=== PATIENT | male | born 1960 | race Caucasian/White ===

== ENCOUNTER 2017-02-21 08:48 | Inpatient (IN) ==
[2017-02-21] MEDS ORDERED: 0.9 % Sodium Chloride 1,000 ML IVC ONE ×2 (09:08→10:10)
[2017-02-21 09:19] LABS: Bilirubin,Urine Moderate (Negative); Blood,Urine Small (Negative); Clarity,Urine Cloudy (Clear); Color,Urine Dark Yellow (Yellow); Glucose,Urine (UA) Normal (Normal); Ketones,Urine 15 mg/dL (Negative); Leukocyte Esterase,Urine Negative (Negative); Nitrite,Urine Negative (Negative); PH,Urine 5.5 pH Units (5.0-8.0); Protein,Urine 30 mg/dL (Neg-Trace); Urobilinogen,Urine Normal (Normal)
[2017-02-21 09:21] LABS: Bacteria,Urine None Seen per hpf (None-Few); Hyaline Casts,Urine None Seen per lpf (None-Few); Squamous Epithelial Cell,Urine Moderate per lpf (None-Few); WBC,Urine 0-3 per hpf (0-3)
--- NOTE | 2017-02-21 09:30 | Emergency Department Note ---
Disposition Clinical Impression: Dehydration, Nausea and vomiting in adult, Acute renal insufficiency, Elevated LFTs, Serum lipase elevation, Hyperbilirubinemia Disposition: Admitted As Inpatient Condition: Fair Referrals: Onesimo Ayala DO [Primary Care Provider] - Forms: ED Satisfaction Letter Time of Disposition: 12:42 Nausea/Vomiting/Diarrhea HPI - General Chief complaint: ED Nausea/Vomiting/Diarrhea Stated complaint: N/V/D x3 days Time Seen by Provider: 02/21/17 09:08 Source: patient Limitations: no limitations Nursing Notes Reviewed: Yes Vital Signs Reviewed: Yes - History of Present Illness HPI Narrative: 56-year-old nontoxic-appearing male presents to emergency department for evaluation of nausea, vomiting, and diarrhea that has been occurring for the past 3 days. He states numerous episodes per day, stating "I go about every half hour". He denies any associated abdominal pain. He denies any fever, chills, cough, chest pain, or shortness of breath. He denies any dysuria, blood in the stool, or bloody emesis. He denies any recent foreign travel. He states that he has had multiple sick contacts at work with similar symptoms. He does admit to "occasioal" ETOH use. He goes on to state that he is feeling rather weak as of this point. Pt Subjective Complaint: nausea, vomiting, diarrhea Onset (ago): day(s) (3) Description of emesis: watery Description of Diarrhea: water Associated Abdominal Pain: No Associated symptoms: Reports: weakness. Denies: chest pain, diaphoresis, fever/ chills, headaches, dysuria, syncope - Related Data Home Medications Medication Instructions Recorded Confirmed Lisinopril 02/21/17 Pantoprazole Sodium [Protonix] 20 mg PO DAILY 02/21/17 02/21/17 Allergies Allergy/AdvReac Type Severity Reaction Status Date / Time No Known Allergies Allergy Verified 02/21/17 08:52 All systems ED: reviewed and negative except as stated. Constitutional: Denies: fever, chills, weakness, weight change Eyes: Denies: eye pain, eye discharge, vision change ENT ED: Denies: ear pain, throat pain, dental pain, hearing loss, epistaxis, congestion, dysphagia Cardiovascular: Denies: chest pain, palpitations, dyspnea on exertion, edema, syncope Respiratory: Denies: cough, dyspnea, wheezes, hemoptysis, stridor Gastrointestinal: Reports: as per HPI, nausea, vomiting, diarrhea. Denies: abdominal pain, constipation, hematemesis, melena, hematochezia Genitourinary: Denies: urgency, dysuria, frequency, hematuria Musculoskeletal: Denies: back pain, neck pain, arthralgia, myalgia Integumentary: Denies: rash, abrasion, lesions Neurological: Reports: as per HPI, weakness. Denies: headache, numbness, paresthesias, confusion, abnormal gait, vertigo Psychiatric: Denies: anxiety, depression, suicidal thoughts, homicidal thoughts , auditory hallucinations, visual hallucinations Endocrine: Denies: fatigue Hematological/Lymphatic: Denies: easy bleeding, easy bruising Allergic/Immunologic: Denies: facial swelling, urticaria Past Medical History - Past Medical History Attestation: Yes The following information was validated with the patient. Source: patient Medical history: Reports: GERD, hypertension, other - Social History Smoking Status: Never smoker Alcohol use: Reports: occasionally Drug use: Reports: none Physical Exam - General Limitations: no limitations General appearance: alert - Head Head exam: atraumatic, normocephalic, normal inspection - Eye Eye exam: Present: normal appearance, PERRL, EOMI. Absent: nystagmus - ENT ENT exam: mucous membranes dry - Neck Neck exam: Present: normal inspection, full ROM, trachea midline - Chest Chest inspection: Present: normal inspection, symmetric chest wall rise - Respiratory Respiratory exam: Present: normal lung sounds bilaterally. Absent: wheezes, stridor, accessory muscle use, prolonged expiratory phase - Cardiovascular Cardiovascular exam: Present: regular rate, normal rhythm, normal heart sounds - Abdominal Exam Abdominal exam: Present: soft, Non-Tender, normal bowel sounds. Absent: tenderness, distention, guarding, rebound, rigidity, organomegaly, trauma, Jessica's sign, tenderness at McBurney's Point, ascites, mass - Extremities Exam Extremities exam: Present: normal inspection, full ROM. Absent: tenderness, pedal edema - Back Exam Back exam: Present: normal inspection, full ROM. Absent: tenderness - Neurological Exam Neurological exam: Present: alert, oriented X3 - Psychiatric Psychiatric exam: Present: normal affect, normal mood - Skin Skin exam: Present: warm, dry, intact, normal color Course Course Narrative: 1005: I discussed this patient's case and laboratory results with Dr. Rodriguez. Dr. Rodriguez recommends obtaining a CT of the abdomen and pelvis without contrast regarding his elevated lipase, total bilirubin AST, and ALT. the patient's GFR and creatinine prohibit the use of IV contrast. 1204: I spoke with Dr. Josue, surgery contingents supervisor. Dr. Josue recommends admission to the hospitalist service and as needed consults with gastroenterology. 1236: I spoke with Dr. Shen, hospitalist. She accepts the patient for admission under the hospitalist service. Vital Signs Temperature 99.0 F 02/21/17 08:49 Pulse Rate 105 02/21/17 08:49 Respiratory Rate 18 02/21/17 08:49 Blood Pressure 134/83 02/21/17 08:49 O2 Sat by Pulse Oximetry 97 02/21/17 08:49 Temperature 98 F 02/21/17 10:57 Pulse Rate 84 02/21/17 12:07 Respiratory Rate 20 02/21/17 12:07 Blood Pressure 137/91 02/21/17 12:07 O2 Sat by Pulse Oximetry 98 02/21/17 12:07 Oxygen Delivery Oxygen Delivery Room Air Nausea/Vomiting/Diarrhea - Medical Records Medical records reviewed: Yes I reviewed the patient's medical records. - Lab Data Lab results reviewed: Yes I reviewed the patient's lab results. Result diagrams: 02/21/17 09:26 02/21/17 09:26 Lab Results 02/21/17 02/21/17 02/21/17 Range/Units 09:00 09:26 09:26 WBC 7.0 (4.3-11.1) K/mcL RBC 3.81 L (4.19-5.50) M/mcL Hgb 13.5 (12.9-16.9) g/dL Hct 37.9 (37.5-50.1) % MCV 99.5 (83.0-100.0) fL MCH 35.4 H (28.0-33.3) pg MCHC 35.6 H (31.6-35.5) g/dL RDW 12.5 (11.5-14.5) % Plt Count 56 L (140-400) K/mcL MPV 9.6 (9.4-12.4) fL Immature Gran % 1.6 (0-4) % Seg Neutrophils % 76.9 % Lymphocytes % 8.3 % Monocytes % 12.4 % Eosinophils % 0.4 % Basophils % 0.4 % Neutrophils # 5.4 (1.6-8.9) K/mcL Lymphocytes # 0.6 (0.6-4.6) K/mcL Monocytes # 0.9 (0.0-1.3) K/mcL Eosinophils # 0.0 (0.0-0.6) K/mcL Basophils # 0.0 (0.0-0.2) K/mcL Immature Plt Fraction 5.4 (1.1-6.1) % Sodium 131 L (136-145) mEq/L Potassium 4.5 (3.5-4.5) mEq/L Chloride 90 L (98-109) mEq/L Carbon Dioxide 19 (19-29) mEq/L BUN 97 H (8-26) mg/dL Creatinine 2.36 H (0.72-1.25) mg/dL Est GFR ( Amer) 35 L (> 60) Est GFR (Non-Af Amer) 29 L (> 60) BUN/Creatinine Ratio 41 H (6-26) Glucose 120 H (70-99) mg/dL Calculated Osmolality 303 H (280-300) Calcium 10.8 (8.6-10.8) mg/dL Total Bilirubin 2.7 H (0.2-1.2) mg/dL Direct Bilirubin 1.4 H (0.0-0.5) mg/dL Indirect Bilirubin 1.3 H (0.0-1.2) mg/dL AST 192 H (5-34) Units/L ALT 247 H (0-55) Units/L Alkaline Phosphatase 75 (38-126) Units/L Serum Total Protein 8.0 (6.0-8.3) g/dL Albumin 4.1 (3.5-5.0) g/dL Globulin 3.9 H (2.4-3.5) g/dL Albumin/Globulin Ratio 1.1 (1.1-2.2) Lipase 591 H (8-78) Units/L Urine Color Dark Yellow (Yellow) Urine Clarity Cloudy A (Clear) Urine pH 5.5 (5.0-8.0) pH Units Ur Specific [place] 1.020 (1.010-1.025) Urine Protein 30 H (Neg-Trace) mg/dL Urine Glucose (UA) Normal (Normal) mg/dL Urine Ketones 15 H (Negative) mg/dL Urine Blood Small H (Negative) Urine Nitrite Negative (Negative) Urine Bilirubin Moderate H (Negative) Urine Urobilinogen Normal (Normal) mg/dL Ur Leukocyte Esterase Negative (Negative) Urine Microscopic RBC 5-15 H (0-3) per hpf Urine Microscopic WBC 0-3 (0-3) per hpf Ur Squamous Epith Cells Moderate H (None-Few) per lpf Urine Bacteria None Seen (None-Few) per hpf Hyaline Casts None Seen (None-Few) per lpf Ur Culture Indicated? NO (NO) - Radiology Data Radiology results reviewed: Yes I reviewed the patient's radiology results. Abdomen/Pelvis CT 02/21/17 10:04 IMPRESSION: 1. No acute finding in the abdomen or pelvis to account for patient's vomiting and diarrhea. There is no evidence of bowel obstruction. 2. Diffuse hepatic steatosis. 3. Although not well seen on CT, there may be hyperdense material in the dependent portion of the gallbladder lumen. If patient has right upper quadrant abdominal pain, ultrasound would better assess the gallbladder for stones. 4. Fat containing umbilical hernia and fat containing left inguinal hernia. D/ / 02/21/2017 11:28:31 Thom Arechiga MD / tita Interpreting Provider: Thom Arechiga MD Gallbladder Ultrasound 02/21/17 11:05 IMPRESSION: Gallbladder sludge with no other sonographic findings for acute cholecystitis. Hepatic steatosis. D/ / Gladis Wallace MD / Gladis Wallace MD Interpreting Provider: Gladis Wallace MD
[2017-02-21 09:35] LABS: Eosinophils % 0.4 %; Hemoglobin 13.5 g/dL (12.9-16.9); Mean Corpuscular Volume 99.5 fL (83.0-100.0)
[2017-02-21 09:37] LABS: Basophils % 0.4 %; Hematocrit 37.9 % (37.5-50.1); Immature Granulocytes % 1.6 % (0-4); Immature Platelets 5.4 % (1.1-6.1); Lymphocytes # 0.6 K/mcL (0.6-4.6); Lymphocytes % 8.3 %; Mean Corpuscular HGB Conc 35.6 g/dL (31.6-35.5); Mean Corpuscular Hemoglobin 35.4 pg (28.0-33.3); Mean Platelet Volume 9.6 fL (9.4-12.4); Monocytes # 0.9 K/mcL (0.0-1.3); Monocytes % 12.4 %; Red Blood Count 3.81 M/mcL (4.19-5.50); Red Cell Distribution Width 12.5 % (11.5-14.5); Segmented Neutrophils % 76.9 %
[2017-02-21 09:42] LABS: Neutrophils # 5.4 K/mcL (1.6-8.9); Platelet Count 56 K/mcL (140-400)
[2017-02-21 09:52] LABS: Albumin 4.1 g/dL (3.5-5.0); Albumin/Globulin Ratio 1.1 (1.1-2.2); Bilirubin,Direct 1.4 mg/dL (0.0-0.5); Bilirubin,Indirect 1.3 mg/dL (0.0-1.2); Bilirubin,Total 2.7 mg/dL (0.2-1.2); Calcium 10.8 mg/dL (8.6-10.8); Globulin 3.9 g/dL (2.4-3.5); Potassium 4.5 mEq/L (3.5-4.5)
[2017-02-21 13:34] LABS: Hepatitis B Surface Antigen Nonreactive (Nonreactive)
[2017-02-21] MEDS ORDERED: Naloxone 0.4 MG/ML INJ IVP PRN (14:54)
[2017-02-21] MEDS ORDERED: Ondansetron 4 MG/2 ML VIAL IVP PRN (14:54)
[2017-02-21] MEDS: 0.9 % Sodium Chloride 1,000 ML IVC SCH (15:15)
--- NOTE | 2017-02-21 15:19 | Internal Med History&Physical ---
Date of Encounter: 02/21/17 Time of Encounter: 15:17 Assessment and Plan (1) Dehydration Current visit: Yes Status: Acute 2/2 n/v/d. He took [id number] antidiarrheal medication, after which he says he has not had diarrhea today. HE got 2 l of IVF at ED, will continue IVF until he is able to tolerate diet well. (2) Nausea and vomiting in adult Current visit: Yes Status: Acute unclear etiology, ?viral CT abdomen unremarkable, GB US shows biliary sludge only will treat symptomatically, will repeat LFTs tomorrow. GI has been consulted. (3) Acute renal insufficiency Current visit: Yes Status: Acute Secondary to dehydration from nausea vomiting and diarrhea for the last 3 days. Will repeat Chem-7 tomorrow, continue IV fluids. Most likely prerenal from dehydration. (4) Elevated LFTs Current visit: Yes Status: Acute Hepatic steatosis with fatty liver in the CAT scan. Does not show CBD dilatation or gallstones. hepatitis panel has been sent, hepBsAg is negative, will repeat LFTs tomm for the trend. no recent addition or change in any meds. However has gallbladder sludge, unclear significance, however will consult GI for further evaluation. Patient is clinically asymptomatic with no abdominal pain at this time. (5) Serum lipase elevation Current visit: Yes Status: Acute no abdmonial pain, clinically does not appear as acute pancreatitis. however will continue conservative management (6) Hyperbilirubinemia Current visit: Yes Status: Acute Internal Medicine - H&P: HPI Chief complaint: n/v/d Admitted From: Home Plans for Post Hospital Care: Home History of present illness: Mr. Morgan is a 56 year old male presents to emergency department for evaluation of nausea, vomiting, and diarrhea that has been occurring for the past 3 days. He states numerous episodes per day, diarrhea watery with no blood. He denies any associated abdominal pain. He denies any fever, chills, cough, chest pain, or shortness of breath. He denies any dysuria, blood in the stool, or bloody emesis. He denies any recent foreign travel. He does admit to "occasioal" ETOH use. HE says that he has not been able to eat or drink much and feels like he has lost weight and feels very weak. Past Med Surg Social Fam HX - Past Medical History Medical history: GERD, hypertension, other - Social History Smoking Status: Never smoker Smokeless Tobacco Status: No Alcohol use: occasionally Drug use: none Internal Medicine - H&P: Meds Lisinopril/Hydrochlorothiazide [Zestoretic 20-12.5 mg Tablet] 1 tab PO DAILY 09/29 [History] Metoprolol Succinate 150 mg PO DAILY 02/21/17 [History] Multivit-Min/FA/Lycopen/Lutein [Men 50 Plus Multivitamin Tab] 1 tab PO DAILY 09/29 [History] Pantoprazole Sodium [Protonix] 40 mg PO DAILY 02/21/17 [History] Allergies No Known Allergies Allergy (Verified 02/21/17 08:52) All Systems PM: A 10-system review of systems was performed and is negative for pertinent findings except as documented above in the HPI. - Constitutional Constitutional: lethargy, weakness - EENT Eyes: no change in vision, no discharge, no pain, no photophobia Ears: no ear discharge, no ear pain, no tinnitus Nose, mouth and throat: no dysphagia, no nasal discharge, no neck pain, no sore throat - Cardiovascular Cardiovascular ROS IM: no chest pain, no diaphoresis, no dyspnea, no lightheadedness, no palpitations, no syncope - Respiratory Respiratory: no cough, no dyspnea, no wheezing, no excessive phlegm production - Gastrointestinal Gastrointestinal: diarrhea, nausea, vomiting - Musculoskeletal Musculoskeletal ROS IM: no numbness, no tingling - Integumentary Integumentary IM: no rash, no unusual bruising - Constitutional Vitals: Temp Pulse Resp BP Pulse Ox 98.0 F 90 16 155/83 94 02/21/17 15:03 02/21/17 15:03 02/21/17 15:03 02/21/17 15:03 02/21/17 15:03 General appearance: Present: A&O X 3, no acute distress Exam: - Head Head exam: atraumatic, normocephalic, normal inspection - Eye Eye exam: Present: normal appearance, PERRL, EOMI. Absent: nystagmus - ENT ENT exam: mucous membranes dry - Neck Neck exam: Present: normal inspection, full ROM, trachea midline - Respiratory Respiratory exam: Present: normal lung sounds bilaterally. Absent: wheezes, stridor, accessory muscle use, prolonged expiratory phase - Cardiovascular Cardiovascular exam: Present: regular rate, normal rhythm, normal heart sounds - Abdominal Exam Abdominal exam: Present: soft, Non-Tender, normal bowel sounds. Absent: tenderness, distention, guarding, rebound, rigidity, organomegaly, trauma, Jessica's sign, tenderness at McBurney's Point, ascites, mass - Extremities Exam Extremities exam: Present: normal inspection, full ROM. Absent: tenderness, pedal edema - Back Exam Back exam: Present: normal inspection, full ROM. Absent: tenderness - Neurological Exam Neurological exam: Present: alert, oriented X3 - Psychiatric Psychiatric exam: Present: normal affect, normal mood - Skin Skin exam: Present: warm, dry, intact, normal color Internal Med - H&P Results - Labs CBC & Chem 7: 02/21/17 09:26 02/21/17 09:26
[2017-02-21] MEDS ORDERED: Artificial Tears SOLN 15 ML BOTTLE BOTH EYES PRN (23:44)
[2017-02-22] MEDS: 0.9 % Sodium Chloride 1,000 ML IVC SCH ×3 (01:28→22:55)
[2017-02-22 06:16] LABS: Basophils % 0.6 %
[2017-02-22 06:18] LABS: Eosinophils # 0.1 K/mcL (0.0-0.6); Hemoglobin 11.1 g/dL (12.9-16.9); Immature Granulocytes % 1.4 % (0-4); Immature Platelets 5.4 % (1.1-6.1); Lymphocytes # 0.9 K/mcL (0.6-4.6); Lymphocytes % 18.4 %; Mean Corpuscular HGB Conc 34.7 g/dL (31.6-35.5); Mean Corpuscular Hemoglobin 35.6 pg (28.0-33.3); Mean Corpuscular Volume 102.6 fL (83.0-100.0); Mean Platelet Volume 10.4 fL (9.4-12.4); Monocytes # 0.6 K/mcL (0.0-1.3); Monocytes % 12.1 %; Neutrophils # 3.2 K/mcL (1.6-8.9); Red Blood Count 3.12 M/mcL (4.19-5.50); Red Cell Distribution Width 12.3 % (11.5-14.5); Segmented Neutrophils % 65.5 %
[2017-02-22 06:30] LABS: Alanine Aminotransferase 182 Units/L (0-55); Albumin 3.4 g/dL (3.5-5.0); Albumin/Globulin Ratio 1.1 (1.1-2.2); Alkaline Phosphatase 56 Units/L (38-126); Aspartate Amino Transferase 139 Units/L (5-34); BUN/Creatinine Ratio 43 (6-26); Bilirubin,Indirect 1.3 mg/dL (0.0-1.2); Bilirubin,Total 2.3 mg/dL (0.2-1.2); Calcium 9.5 mg/dL (8.6-10.8); Carbon Dioxide 24 mEq/L (19-29); Chloride 99 mEq/L (98-109); Globulin 3.1 g/dL (2.4-3.5); Glucose 85 mg/dL (70-99); Osmolality,Calculated 297 (280-300); Potassium 4.1 mEq/L (3.5-4.5); Sodium 135 mEq/L (136-145); Total Protein 6.5 g/dL (6.0-8.3); eGFR For African Americans > 60 (> 60); eGFR For Non-African Americans 52 (> 60)
[2017-02-22 06:31] LABS: Blood Urea Nitrogen 61 mg/dL (8-26); Platelet Count 48 K/mcL (140-400)
--- NOTE | 2017-02-22 08:23 | Gastroenterology Consult Note ---
<Charley Schuster - Last Filed: 02/22/17 12:03> Date of Encounter: 02/22/17 Time of Encounter: 10:55 - Assessment and plan (1) Nausea and vomiting in adult Current Visit: Yes Status: Acute Assessment and plan: Unclear etiology, however, lipase elevated (591), no evidence of pancreatitis on imaging. Continue supportive care. (2) Elevated LFTs Current Visit: Yes Status: Acute Assessment and plan: Suspicious of underlying cirrhosis secondary to etoh abuse. Diffuse hepatic steatosis on imaging, however, no prior studies to compare. Patient has slightly elevated LFTs and hyperbilirubinemia which are trending lower today. Patient has thrombocytopenia. R/O etoh etiology. Negative Hep B, holding on Hep C results. Will complete liver w/u. (3) Serum lipase elevation Current Visit: Yes Status: Acute Assessment and plan: Possibly etoh-induced, however, there is imaging evidence of GB sludge; could possibly be related to sludge or stone as well. NO evidence of acute pancreatitis on imaging. 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 F/U in OV. (5) Alcohol abuse Current Visit: Yes Status: Chronic Assessment and plan: Patient states 3-4 shots of liquor every other day - Time Spent With Patient Total time spent is greater than 50% in coordination of care (as documented) at patient's floor/unit and/or counseling patient: GI History of Present Illness - Data of Consult Patient: new to practice Consult date: 02/22/17 Requesting Physician: Selma Del Rosario - Consult Narrative Reason for consult: elev lfts, acute pancreatitis History of present illness: Mr. Morgan is a 56 year old male with a PMH of GERD and HTN who presented to ED for evaluation of 3 day hx of N/V/D. He states numerous diarrhea episodes per day, diarrhea watery with no blood, prior to admission he took OTC anti- diarrheal which had stopped his frequent, watery bowel movements. He denies any associated abdominal pain. No apparent sick contacts or travel recently. He does admit to "occasional" ETOH use. HE says that he has not been able to eat or drink much and feels like he has lost weight and feels very weak. Patient was admitted with acute kidney injury, dehydration. Imaging shows severe hepatic steatosis, no radiological evidence of pancreatitis, but lipase elevated at admission at 591. All LFTs were elevated, but are trending lower in am labs. GI panel and hepatitis screen are pending (no active Hep B). Patient admitted 3-4 shots of liquor more days of the week than not. He continued to have some diarrhea this morning, sample was obtained. Denied any abdominal pain , no family history of colon cancer. Typically moves his bowels 3x daily, soft, brown stools. Colonoscopy: None noted EGD: None noted Past Med Surg Social Fam HX - Past Medical History Medical history: GERD, hypertension, other - Social History Smoking Status: Never smoker Smokeless Tobacco Status: No Alcohol use: occasionally Drug use: none - Gastrointestinal NSAID use: None noted Anticoagulation Use: None noted Number of BM Per Day: 3 Gastrointestinal: Present: diarrhea, nausea, vomiting - Constitutional Constitutional: anorexia - EENT Eyes: as per HPI Ears: Present: as per HPI Nose, mouth and throat: Present: as per HPI - Cardiovascular Cardiovascular ROS: Present: as per HPI - Respiratory Respiratory IM: Present: as per HPI - Neurological ROS Neurological GI: Present: as per HPI - Hematologic/Lymphatic Hematologic/Lymphatic pediatric: Present: as per HPI - Musculoskeletal Musculoskeletal ROS GI: Present: as per HPI - Integumentary Integumentary GI: Present: as per HPI - Psychiatric ROS Psychiatric GI: Present: as per HPI - Endocrine Endocrine IM: Present: as per HPI - Constitutional Vitals: Temp Pulse Resp BP Pulse Ox 98.1 F 80 15 148/89 97 02/22/17 06:42 02/22/17 06:42 02/22/17 06:42 02/22/17 06:42 02/22/17 06:42 General appearance: Present: cooperative, A&O X 3, no acute distress, answers questions appropriately - Head Head exam: Present: atraumatic, normocephalic - Eye Eye exam: Present: normal appearance, sclera anicteric - ENT ENT exam: Present: mucous membranes moist - Neck Neck exam general surgery: Present: normal inspection, trachea midline - Respiratory Respiratory exam: Present: wheezes - Cardiovascular Cardiovascular exam: Present: +S1, +S2, tachycardia - GI/Abdominal GI/Abdominal exam: Present: soft, tenderness - Rectal Rectal exam: Present: deferred - Extremities Exam Extremities exam: Present: warm - Neurological Exam Neurological exam: Present: altered Additional comments: tremors/chills - Psychiatric Psychiatric exam: Present: normal affect, normal mood - Skin Skin exam: Present: normal color, warm Additional comments: spider angioma on chest wall Results - Labs CBC & Chem 7: 02/22/17 05:12 02/22/17 05:12 Labs: Last Result Calcium 9.5 mg/dL (8.6-10.8) 02/22/17 05:12 Entire Visit Hgb 11.1 g/dL (12.9-16.9) L D 02/22/17 05:12 Hct 32.0 % (37.5-50.1) L 02/22/17 05:12 Total Bilirubin 2.3 mg/dL (0.2-1.2) H 02/22/17 05:12 AST 139 Units/L (5-34) H 02/22/17 05:12 ALT 182 Units/L (0-55) H 02/22/17 05:12 Lipase 591 Units/L (8-78) H 02/21/17 09:26 Consult Discharge Plan - Plan Referrals: Onesimo Ayala DO [Primary Care Provider] - <Mickey Mccollum - Last Filed: 02/22/17 21:02> Date of Encounter: 02/22/17 Time of Encounter: 15:00 - Time Spent With Patient Total time spent is greater than 50% in coordination of care (as documented) at patient's floor/unit and/or counseling patient: GI History of Present Illness - Data of Consult Requesting Physician: Selma Del Rosario - Consult Narrative History of present illness: Mr. Morgan is a 56 year old male - Constitutional Vitals: Temp Pulse Resp BP Pulse Ox 98.6 F 84 18 129/86 96 02/22/17 19:30 02/22/17 19:30 02/22/17 19:30 02/22/17 19:30 02/22/17 20:02 Results - Labs CBC & Chem 7: 02/22/17 05:12 02/22/17 05:12 Labs: Last Result Calcium 9.5 mg/dL (8.6-10.8) 02/22/17 05:12 Ferritin 4298 ng/ml (22-275) H 02/22/17 08:48 Entire Visit Hgb 11.1 g/dL (12.9-16.9) L D 02/22/17 05:12 Hct 32.0 % (37.5-50.1) L 02/22/17 05:12 PT 10.8 Seconds (9.4-12.1) 02/22/17 08:48 Ferritin 4298 ng/ml (22-275) H 02/22/17 08:48 Total Bilirubin 2.3 mg/dL (0.2-1.2) H 02/22/17 05:12 AST 139 Units/L (5-34) H 02/22/17 05:12 ALT 182 Units/L (0-55) H 02/22/17 05:12 Lipase 591 Units/L (8-78) H 02/21/17 09:26 - ABG ABG results: PT/INR, D-dimer PT 10.8 Seconds (9.4-12.1) 02/22/17 08:48 - Attending Attestation I examined this patient and my medical decision-making was reviewed with the LACEMAKER/PA/Advanced Practice Nurse/Resident Physician. I agree with the documented findings, disposition and treatment plan as described except to the extent set forth below.
[2017-02-22 09:06] LABS: Prothrombin Time 10.8 Seconds (9.4-12.1)
[2017-02-22 09:09] LABS: Activated Partial Thrombo Time 24.6 Seconds (26.0-36.0)
[2017-02-22 09:17] LABS: Lactate Dehydrogenase 226 Units/L (159-327)
[2017-02-22] MEDS: Metoprolol XL (24 HR) Succ 50 MG TAB.ER.24H PO SCH (09:46)
[2017-02-22 11:30] LABS: Gamma Glutamyl Transpeptidase 352 Units/L (12-64)
[2017-02-22 11:46] LABS: Hepatitis A Antibody IgM Nonreactive (Nonreactive); Hepatitis B Core IgM Nonreactive (Nonreactive); Hepatitis C Virus Antibody Nonreactive (Nonreactive)
[2017-02-22 13:06] LABS: Campylobacter by PCR Not detected (Not detect); Plesiomonas shigelloides PCR Not detected (Not detect); Salmonella PCR Not detected (Not detect)
[2017-02-22 13:07] LABS: Ferritin 4298 ng/ml (22-275)
[2017-02-22 13:07] LABS: Adenovirus F 40/41 PCR Not detected (Not detect); Astrovirus PCR Not detected (Not detect); Cryptosporidium by PCR Not detected (Not detect); Cyclospora cayetanensis PCR Not detected (Not detect); E. coli O157 by PCR Not detected (Not detect); Entamoeba histolytica PCR Not detected (Not detect); Enteroaggregative E.coli(EAEC) Not detected (Not detect); Enteropathogenic E.coli(EPEC) Not detected (Not detect); Enterotoxigenic E.coli (ETEC) Not detected (Not detect); Giardia lamblia PCR Not detected (Not detect); Norovirus GI/GII PCR Not detected (Not detect); Rotavirus A PCR Not detected (Not detect); Sapovirus PCR Not detected (Not detect); Shig/EnteroinvasiveE coli EIEC Not detected (Not detect); Shigalike tox-prod E coli STEC Not detected (Not detect); Vibrio PCR Not detected (Not detect); Vibrio cholerae PCR Not detected (Not detect); Yersinia enterocolitica PCR Not detected (Not detect)
[2017-02-22] MEDS: Artificial Tears SOLN 15 ML BOTTLE BOTH EYES PRN ×2 (16:28→20:10)
--- NOTE | 2017-02-22 19:12 | Internal Med Progress Note ---
Date of Encounter: 02/22/17 Time of Encounter: 16:00 - Assessment and plan (1) Nausea and vomiting in adult Current Visit: Yes Status: Acute Assessment and plan: Secondary to liver injury. Resolved. (2) Elevated LFTs Current Visit: Yes Status: Acute Assessment and plan: Elevated LFTs with associated hyperbilirubinemia. Likely secondary to alcohol abuse. Patient drinks 4 shots of whiskey 4 times a day for the past 20 years ( 1 ounce every shot). Also, patient reports new [id number] vitamin that he has started taking 2 weeks ago. He will bring bottle tomorrow. His ferritin level was elevated. will repeat ferritin in the morning. CT of the abdomen and pelvis revealed diffuse hepatic steatosis, left inguinal hernia. Gallbladder ultrasound was unremarkable. Continue supportive therapy with IV fluids. Close monitoring of LFTs. (3) Hyperbilirubinemia Current Visit: Yes Status: Acute Assessment and plan: Plan as above. (4) Acute kidney injury Current Visit: Yes Status: Acute Assessment and plan: Prerenal from dehydration due to GI losses. Kidney function is improving. Continue IV fluids. Close monitoring of kidney function. Avoid nephrotoxic agents as possible. (5) Dehydration Current Visit: Yes Status: Acute Assessment and plan: Resolved. Continue IV fluids. (6) Thrombocytopenia Current Visit: Yes Status: Acute Assessment and plan: No Splenomegaly in CT of the abdomen. Close monitoring. No bleeding. (7) Elevated ferritin Current Visit: Yes Status: Acute Assessment and plan: Could be an inflammatory reaction due to hepatitis. We will repeat levels in the morning. (8) Diarrhea Current Visit: Yes Status: Acute Assessment and plan: Suspected postprandial diarrhea due to malabsorption. Possible chronic pancreatitis. Start pancreatic enzymes with meals. 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 He agreed. - Subjective Interval history: Patient denies any abdominal pain, nausea or vomiting. He is tolerating oral intake well. His only complaint is postprandial diarrhea - Constitutional Vitals: Temp Pulse Resp BP Pulse Ox 98.6 F 86 16 150/91 96 02/22/17 14:56 02/22/17 14:56 02/22/17 14:56 02/22/17 14:56 02/22/17 14:56 General appearance: Present: cooperative, A&O X 3, pleasant, no acute distress, answers questions appropriately - Eye Eye exam: Present: PERRL, sclera anicteric - Neck Neck exam general surgery: Present: supple, trachea midline. Absent: lymphadenopathy - Respiratory Respiratory exam: Present: CTAB - Cardiovascular Cardiovascular exam: Present: RRR - GI/Abdominal GI/Abdominal exam: Present: normal bowel sounds, soft. Absent: distended, tenderness - Extremities Exam Extremities exam: Absent: pedal edema - Back Exam Back exam: Absent: CVA tenderness (L), CVA tenderness (R) - Neurological Exam Neurological exam: Present: alert, oriented X3. Absent: facial droop, speech deficit - Skin Skin exam: Absent: rash Internal Medicine: Result - Labs CBC & Chem 7: 02/22/17 05:12 02/22/17 05:12 - ABG Interpretation ABG results: PT/INR, D-dimer PT 10.8 Seconds (9.4-12.1) 02/22/17 08:48 Consult Discharge Plan - Plan Referrals: Onesimo Ayala DO [Primary Care Provider] -
[2017-02-23 06:18] LABS: Mean Corpuscular Volume 102.7 fL (83.0-100.0); Red Cell Distribution Width 12.2 % (11.5-14.5); Segmented Neutrophils % 66.7 %
[2017-02-23 06:19] LABS: Basophils % 0.8 %; Eosinophils # 0.1 K/mcL (0.0-0.6); Eosinophils % 1.8 %; Hematocrit 30.2 % (37.5-50.1); Hemoglobin 10.6 g/dL (12.9-16.9); Immature Granulocytes % 1.8 % (0-4); Immature Platelets 4.1 % (1.1-6.1); Lymphocytes # 0.9 K/mcL (0.6-4.6); Lymphocytes % 17.3 %; Mean Corpuscular HGB Conc 35.1 g/dL (31.6-35.5); Mean Corpuscular Hemoglobin 36.1 pg (28.0-33.3); Mean Platelet Volume 9.8 fL (9.4-12.4); Monocytes # 0.6 K/mcL (0.0-1.3); Monocytes % 11.6 %; Neutrophils # 3.4 K/mcL (1.6-8.9); Red Blood Count 2.94 M/mcL (4.19-5.50)
[2017-02-23 06:27] LABS: Alanine Aminotransferase 186 Units/L (0-55); Albumin 3.2 g/dL (3.5-5.0); Albumin/Globulin Ratio 1.1 (1.1-2.2); Alkaline Phosphatase 60 Units/L (38-126); Aspartate Amino Transferase 135 Units/L (5-34); BUN/Creatinine Ratio 32 (6-26); Bilirubin,Direct 0.8 mg/dL (0.0-0.5); Bilirubin,Indirect 0.6 mg/dL (0.0-1.2); Bilirubin,Total 1.4 mg/dL (0.2-1.2); Calcium 9.6 mg/dL (8.6-10.8); Carbon Dioxide 20 mEq/L (19-29); Chloride 102 mEq/L (98-109); Glucose 94 mg/dL (70-99); Magnesium 1.3 mg/dL (1.6-2.6); Osmolality,Calculated 286 (280-300); Phosphorous 2.7 mg/dL (2.3-4.7); Potassium 3.9 mEq/L (3.5-4.5); Sodium 133 mEq/L (136-145); Total Protein 6.2 g/dL (6.0-8.3); eGFR For African Americans > 60 (> 60); eGFR For Non-African Americans 58 (> 60)
[2017-02-23 06:32] LABS: Platelet Count 65 K/mcL (140-400)
[2017-02-23 06:42] LABS: Blood Urea Nitrogen 41 mg/dL (8-26)
[2017-02-23 06:48] LABS: Thyroid Stimulating Hormone 1.275 mcIU/mL (0.350-4.840)
[2017-02-23 07:29] LABS: Folate 12.1 ng/mL (7.0-31.4)
[2017-02-23 07:40] LABS: % Iron Saturation 40 % (20-55); Iron 91 mcg/dL (65-175); Transferrin 162 mg/dL (174-364)
[2017-02-23 07:56] VITALS: BP 152/90
[2017-02-23] MEDS ORDERED: Magnesium Sulfate 2 GM in D5% in Water 100 ML IVPB STA (08:08)
[2017-02-23] MEDS ORDERED: Magnesium Oxide 400 MG TABLET PO SCH (09:00)
[2017-02-23] MEDS: 0.9 % Sodium Chloride 1,000 ML IVC SCH (09:27)
[2017-02-23] MEDS: Metoprolol XL (24 HR) Succ 50 MG TAB.ER.24H PO SCH (09:29)
[2017-02-23] MEDS ORDERED: *HR* LORazepam 1 MG TABLET PO STA (10:22)
--- NOTE | 2017-02-23 10:27 | Discharge Summary ---
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 RX: Lisinopril [Zestril] 5 mg PO DAILY #30 tablet RX: LORazepam [Ativan] 1 mg PO AD #21 tablet RX: Magnesium Oxide [Mag-Ox] 400 mg PO BID #60 tablet Home Medications: RX: Metoprolol Succinate 150 mg PO DAILY 02/21/17 [History] RX: Pantoprazole Sodium [Protonix] 40 mg PO DAILY 02/21/17 [History] RX: Artificial Tears SOLN [Akwa Tears] 1 drop BOTH EYES QID PRN #0 bottle [Rx] RX: LORazepam [Ativan] 1 mg PO AD #21 tablet 02/23/17 [Rx] RX: Lipase/Protease/Amylase [Mehreen Hurtado 6,000 Units Capsule] 4 each PO TIDWM #120 capsule. 02/23/17 [Rx] RX: Lisinopril [Zestril] 5 mg PO DAILY #30 tablet 02/23/17 [Rx] RX: Magnesium Oxide [Mag-Ox] 400 mg PO BID #60 tablet 02/23/17 [Rx] Allergies/Adverse Reactions: Allergies No Known Allergies Allergy (Verified 02/21/17 08:52) Date of admission: 02/22/17 10:45 Primary care physician: Onesimo Ayala, - Patient Status Disposition: Home, Self-Care Condition: Good Functional capacity at discharge: independent ambulation Overall status at discharge: patient is progressing back to baseline - Discharge Instructions Follow Up With: Onesimo Ayala DO [Primary Care Provider] - 02/28/17 2:15 pm (F/U IN 1 WEEK. F/U WITH DR VARGAS IN 3-4 WEEKS) Mickey Vargas MD [Partnered Physician] - Additional Instructions: YOUR LIVER IS INJURED FROM DRINKING TOO MUCH ALCOHOL. YOU NEED TO STOP DRINKING ALCOHOL. TALK TO YOUR PRIMARY CARE DOCTOR TO HELP YOU IN QUITTING. DRINK PLENTY OF CLEAR FLUIDS, AT LEAST 2 LITERS A DAY. DO NOT TAKE ANY OVER THE COUNTER MEDICATION. CHECK YOUR BLOOD PRESSURE TWICE DAILY (SAME TIME IN THE MORNING AND EVENING), MAKE A LOG AND BRING NUMBERS TO DOCTOR'S APPOINTMENT. FOLLOW UP WITH YOUR DOCTOR IN 1 WEEK AND HAVE BLOOD TEST NEXT WEEK. - Diet and Activity Activity: resume usual activities as tolerated Diet: regular diet Interval History: Patient has no complaints. He is eager to go home. He is tolerating his diet well. Hospital course: Mr. Morgan is a 56 year old male with past medical history of hypertension and alcohol abuse. Patient drinks 4 shots of whiskey 4 times a day for the past 20 years (1 ounce every shot). Patient presented with a chief complain of nausea and vomiting. He was noted to have a elevated LFTs with associated hyperbilirubinemia and thrombocytopenia as well as acute kidney injury due to alcohol abuse and dehydration. He was started on supportive therapy with IV fluids with clinical improvement of his kidney function, and resolution of nausea and vomiting. His LFTs were trending down at discharge. Workup for liver disease was started. Ferritin was 4298 and trended down to [address] of the abdomen and pelvis revealed diffuse hepatic metastatic doses and left inguinal hernia. Gallbladder ultrasound was unremarkable. Patient and sister was explained in detail his diagnosis, treatment options, and poor prognosis he continues drinking alcohol. They verbalized understanding and agreed with the plan. All questions answered. PLAN: Patient was instructed to drink plenty fluids. He will have up blood pressure check next week. He will follow-up with Dr. Vargas in 1-2 weeks for further assessment of liver function. Patient was encouraged to quit drinking alcohol. He agreed. Lorazepam was started to prevent alcohol withdrawal and delirium tremens. - Time Spent with Patient Total time spent providing and/or coordinating discharge services: - Constitutional Vitals: Temp Pulse Resp BP Pulse Ox 98.1 F 82 18 152/90 97 02/23/17 07:48 02/23/17 07:48 02/23/17 07:48 02/23/17 07:48 02/23/17 09:34 General appearance: Present: cooperative, A&O X 3, pleasant, no acute distress, answers questions appropriately
[2017-02-23 10:45] LABS: Ferritin 3060 ng/ml (22-275)
[2017-02-23 14:50] LABS: AFP Tumor Marker Non-Pregnant 3 ng/mL (0-9)
[2017-02-24 07:46] LABS: ANA IgG by ELISA NONE DETECTED (None Detected); Ceruloplasmin 21 mg/dL (17-54); F-Actin (sm muscle) Ab IgG 8 Units (0-19)
[2017-02-28 18:07] LABS: A1A SZ Specimen WHOLE BLOOD; Alpha-1-Antitrypsin S Allele NEGATIVE; Alpha-1-Antitrypsin Z Allele NEGATIVE
[2017-03-01 07:39] LABS: Alpha-1-Antitrypsin 143 mg/dL (90-200)
== END 2017-02-23 12:03 | disposition home or self-care (01) | DRG 684 ==
LOC: 3ANU 08:48 → EMEROO 08:48 → 3ANU 13:49
PROVIDERS: ADMIT Internal Medicine; ATTEND Internal Medicine